=== PATIENT | female | born 1955 ===

== ENCOUNTER 2022-04-13 18:14 | Emergency (ER) | payer BC, MEDICARE ==
[~2022-04-13] VITALS: Ht 162.6 cm; Wt 81.8 kg
[2022-04-13 18:46] VITALS: BP 161/79
== END 2022-04-13 20:17 | disposition home or self-care (01) ==
LOC: ER 18:14
DX: R53.83 Other fatigue (principal); T42.8X5A Adverse effect of antiparkinsonism drugs and other central muscle-tone depressants, initial encounter; E11.9 Type 2 diabetes mellitus without complications; F32.A Depression, unspecified; Z88.2 Allergy status to sulfonamides; Y92.89 Other specified places as the place of occurrence of the external cause
CPT/HCPCS: 99283